=== PATIENT | female | born 1940 | race Caucasian/White ===

== ENCOUNTER 2018-04-10 08:31 | Day surgery (SDC) | payer MEDICARE, BC ==
[2018-04-07 12:06] LABS: ALBUMIN 3.7 g/dL (3.4-5.0); ANION GAP 6 mmol/L (5-15); CALCIUM 9.3 mg/dL (8.5-10.1); CHLORIDE 108 mmol/L (98-107)
[2018-04-07 12:10] LABS: ALANINE AMINOTRANSFERASE 16 U/L (12-78); ALKALINE PHOSPHATASE 98 U/L (45-117); BILIRUBIN,TOTAL 1.1 mg/dL (0.2-1.0); CREATININE 0.88 mg/dL (0.55-1.02); TOTAL PROTEIN 7.3 g/dL (6.4-8.2)
[~2018-04-10] VITALS: Ht 165.1 cm; Wt 63.6 kg
[~2018-04-10 08:31] MED LIST: ASPI-515 PO; ASPI325T17 PO; ATOR10TA9 PO; BUPIVACAINE/PF-EPI 0.5% 1:200K ONE; CALCIUM 600 PO; CELE200C PO; CHOL200024 PO; DOXY25TA22 PO; ESOM40CA PO; FLAX1000 PO; MAGN400T7 PO; METF500T17 PO; MULT-717 PO; TRAM50TA2 PO; [UNRECOGNIZED DRUG - OTHER] PO
[2018-04-10 09:22] VITALS: BP 101/67
[2018-04-10] MEDS ORDERED: LACTATED RINGERS 1,000 ML IV SCH (09:53)
[2018-04-10] MEDS ORDERED: PROPOFOL 50 ML ONE (10:35)
[2018-04-10] MEDS ORDERED: FENTANYL PF 250 MCG/5ML ONE (10:35)
[2018-04-10] MEDS ORDERED: ACETAMINOPHEN 500 MG TABLET ONE (10:46)
[2018-04-10] MEDS ORDERED: GABAPENTIN 300 MG CAPSULE ONE (10:46)
[2018-04-10] MEDS ORDERED: CEFAZOLIN 1,000 MG ONE (10:55)
[2018-04-10] MEDS ORDERED: DEXAMETHASONE 4 MG/ML, 1ML ONE (10:55)
[2018-04-10] MEDS ORDERED: GABAPENTIN 300 MG CAPSULE PO ONE (11:00)
[2018-04-10] MEDS ORDERED: ACETAMINOPHEN 500 MG TABLET PO ONE (11:00)
[2018-04-10] MEDS ORDERED: ONDANSETRON 2MG/ML, 2ML IV PRN (12:00)
[2018-04-10] MEDS ORDERED: DIPHENHYDRAMINE 50 MG/ML, 1ML IVPush PRN (12:00)
[2018-04-10] MEDS ORDERED: PROMETHAZINE 12.5 MG SUPP PR PRN (12:00)
[2018-04-10] MEDS ORDERED: EPHEDRINE 50 MG/ML, 1ML IM PRN (12:00)
[2018-04-10] MEDS ORDERED: EPHEDRINE 50 MG/ML, 1ML IVPush PRN (12:00)
[2018-04-10] MEDS ORDERED: PROMETHAZINE 25 MG SUPP PR PRN (12:00)
[2018-04-10] MEDS ORDERED: ONDANSETRON ODT 8 MG PO PRN (12:00)
[2018-04-10] MEDS ORDERED: ONDANSETRON 2MG/ML, 2ML ONE (12:29)
== END 2018-04-10 17:30 | disposition home or self-care (01) ==
LOC: OUT 08:31
PROVIDERS: ATTEND Surgery
DX: K80.10 Calculus of gallbladder with chronic cholecystitis without obstruction (principal); E11.9 Type 2 diabetes mellitus without complications; Z88.6 Allergy status to analgesic agent; Z88.1 Allergy status to other antibiotic agents; Z88.5 Allergy status to narcotic agent; Z88.8 Allergy status to other drugs, medicaments and biological substances; Z72.89 Other problems related to lifestyle; Z87.891 Personal history of nicotine dependence
CPT/HCPCS: 36415; 47562; 80053; 88304; 93005; J0690; J1100; J2405; J2704; J3010; J7120

== ENCOUNTER → 2020-10-02 | Outpatient (CLI) | payer MEDICARE, BC ==
[~2020-10-02] MED LIST changes: -ASPI-515 PO; +ASPI-963 PO; -BUPIVACAINE/PF-EPI 0.5% 1:200K ONE; -MAGN400T7 PO; +MAGN400T9 PO
== END | disposition home or self-care (01) ==
LOC: CVU 13:22
PROVIDERS: ATTEND Physician Assistant Medical
DX: I65.23 Occlusion and stenosis of bilateral carotid arteries (principal); I99.8 Other disorder of circulatory system
CPT/HCPCS: 93880